=== PATIENT | male | born 1985 | race Caucasian/White ===

== ENCOUNTER 2017-01-30 17:04 | Emergency (ER) | payer MEDICARE, MEDICAID ==
[2017-01-30] MEDS ORDERED: KETOROLAC TROMETHAMINE 60 MG/2 ML VIAL IM ONE (18:05)
[2017-01-30] MEDS ORDERED: ORPHENADRINE CITRATE 30 MG/ML VIAL ONE (18:06)
[2017-01-30] MEDS ORDERED: oxyCODONE HCL/ACETAMINOPHEN 1 TAB TABLET ONE (18:29)
--- OUTSIDE RECORDS SUMMARY | 2017-01-30 22:25 | XMS REPORT | Continuity of Care Document ---
:1985 Author Organization [facility] ([facility]) Address [address] [place] [address] Phone [phone] Care Team Providers Name Role Phone [phone], Need To Check Primary Care Provider Unavailable Source Comments This disclosure is being made pursuant to the Care Everywhere program, applicable federal and state laws, and may not contain all informaitonavailable regarding this patient.[facility] ([facility]) Active Allergies and Adverse Reactions No Active Allergies Current Medications Prescription Sig. Disp. Refills Start Date End Date Status PARoxetine (PAXIL) 30 Take 30 mg by mouth Active mg tablet daily. cloNIDine 0.1 mg Take 1.5 Tabs by mouth 90 Tab 11 07/26/2012 Active tablet 2 times daily. Indications: ATTENTION-DEFICIT HYPERACTIVITY DISORDER ALPRAZolam (XANAX) 1 Take 1 Tab by mouth 2 60 Tab 5 07/26/2012 Active mg tablet times daily. Indications: ANXIETY Active Problems Problem Noted Date Abnormal involuntary movements(781.0) 07/26/2012 Tourette's syndrome 07/26/2012 Social History Tobacco Use Types Packs/Day Years Used Date Current Every Day Smoker 1 18 Tobacco Cessation:Ready to Quit: No; Counseling Given: Yes Comments: Last Filed Vital Signs Vital Sign Reading Time Taken Blood Pressure 137/74 07/26/2012 9:09 AM CDT Pulse 76 07/26/2012 9:09 AM CDT Temperature 36.5 C (97.7 F) 01/27/2004 2:44 PM [employer] Respiratory Rate 16 01/27/2004 2:44 PM [employer] Height 1.778 m (5' 10") 07/26/2012 9:09 AM CDT Weight 98.6 kg (217 lb 6 oz) 07/26/2012 9:09 AM CDT Body Mass Index 31.19 07/26/2012 9:09 AM CDT Oxygen Saturation - - Plan of Care Health Maintenance Due Date Last Done Comments Hepatitis B Vaccine (1 of 3 - Primary Series) 1985 Tdap Vaccine 1997 Lipid Disorder Screening 2004 MMR Vaccine 2004 Td Vaccine 2004 Varicella Vaccine (1 of 2 - Adult - No Evidence of 2004 Immunity) Pneumococcal Vaccine (1 of 1 - PPSV23) 2005 Influenza Vaccine: Seasonal (#1) 06/05/2016 Results from Last 3 Months Not on file
[2017-01-30 23:56] VITALS: BP 134/78
== END 2017-01-30 18:40 | disposition home or self-care (01) ==
LOC: ER 17:04
DX: M54.89 Other dorsalgia (principal)

== ENCOUNTER 2017-06-25 13:02 | Emergency (ER) | payer MEDICARE, MEDICAID ==
[2017-06-25 13:11] VITALS: BP 129/87
--- NOTE | 2017-06-25 14:16 | ERNOTE ---
Medical Problem HPI - Narrative Date of Service: 06/25/17 - General Chief Complaint: General Assessment Time Seen by Provider: 06/25/17 13:20 Source: patient Exam Limitations: no limitations - Immun/Allergies/Home Medications Immunizations: IMMUNIZATION HX Immunizations Up to Date Yes History of Influenza Vaccine No Hx Pneumococcal Vaccination No Allergies/Adverse Reactions: Allergies shellfish derived Allergy (Severe, Verified 06/25/17 13:12) Anaphylaxis tramadol Allergy (Mild, Verified 06/25/17 13:12) Vomiting iodine Allergy (Unknown, Verified 06/25/17 13:12) hydrocodone Allergy (Verified 06/25/17 13:12) Itching Home Medications: HOME MEDICATIONS ALPRAZolam [Xanax] 0.5 mg PO TID 09/28/14 [Last Taken 11/10/14] cloNIDine [Catapres-Tts 1] 0.1 mg TD BID 08/21/15 [Last Taken Unknown] Ibuprofen [Motrin] 600 mg PO Q6H PRN #40 tab 10/13/16 [Last Taken Unknown] oxyCODONE HCL/ACETAMINOPHEN [Oxycodone-Acetaminophen 5-325] 1 each PO Q6H PRN # 20 tablet 10/13/16 [Last Taken Unknown] Permethrin [Elimite 5% Cream] 1 appl TP Q7D #60 gm 06/25/17 [Last Taken Unknown] Prednisone 50 mg PO DAILY #5 tablet 06/25/17 [Last Taken Unknown] - History of Present History Narrative: Patient presents to the ED for itching. He relates he has been having severe itching for the last 5 days. He states he is itching all over. benadryl did not help. no exposures noted. No trouble breathing or swallowing. Has not seen anyone else for this. Tried OTC scabies treatment but no help. Noticed red bumps including on the webspaces. Nothing makes this better or worse. No other systemic Sx. No oral Sx or SOB. Timing: constant Modifying Factors - (Improves): Present: other - nothing Modifying Factors - (Worsens): Present: other - nothing Review of Systems - Review of Systems Constitutional: Absent: fever ENT: Present: no symptoms reported Respiratory: Absent: shortness of breath Cardiology: Absent: chest pain Gastrointestinal/Abdominal: Present: no symptoms reported Musculoskeletal: Present: no symptoms reported Skin: Present: See HPI Neurological: Absent: weakness - Patient's Past Medical History Patient History - Medical: Anxiety, Chronic Pain, Other Patient History - Cardiac/Respiratory: No pertinent hx Patient History - Cancer: No Hx of Cancer Patient History - Surgical Procedures: T & A, Other Patient History - Other: None - Social History Living Situations: home Psych History: Psychiatric Hx Does anyone smoke in the home?: Yes Smoking Status: Current every day smoker Alcohol Use: occasionally Drug Use: none - Immunizations Immunizations Up to Date: Yes Hx Pneumococcal Vaccination: No History of Influenza Vaccine: No Physical Exam - Physical Exam General Appearance: Present: alert, no apparent distress, other - itching Head Exam: Present: normal inspection, no evidence of injury Eye Exam: Normal inspection: bilateral, PERRL: bilateral Ears, Nose, Throat: Present: normal ENT inspection, other - no oral lesions Neck: Present: normal inspection Respiratory: Present: no respiratory distress, no accessory muscle use, lungs clear Cardiovascular/Chest: Present: regular rate, rhythm, normal peripheral pulses Gastrointestinal/Abdominal: Present: normal bowel sounds, nontender, soft Back Exam: Present: normal range of motion Extremity Exam: Present: no edema Neurological Exam: Present: alert, normal mood/affect, no motor/sensory deficits Skin Exam: Present: normal color, warm/dry, other - scattered small red papules including int eh webspaces of the hands. This does not appear allergic, it does not appear to be infected. Clinically this may be scabies so will treat for this. No TEN, SJS or EM. Does not appear to be a life threatening rash. ED Progress - Vital Signs Patient's Vital Signs:: I have reviewed the patient's vital signs. Vital Signs: Vital Signs 06/25/17 13:09 Temperature 36.6 C Pulse Rate 80 Respiratory 16 Rate Blood Pressure 129/87 O2 Sat by Pulse 97 Oximetry - Progress/Reassessment Chief Complaint: General Assessment Progress Note-Subjective: 06/25/17 14:15 Will treat for scabies. No airway or oral involvement. No acute life threat noted. I disucssed warning signs and reasons to return as well as the need for close f/u. Departure - Departure Clinical Impression: Rash and nonspecific skin eruption Disposition: Home self-care Condition: Stable Additional Instructions: Benadryl. Medications as directed. Follow-up with your doctor within 5 days for a re-check. Return here for fever, trouble breathing or swallowing, increased rash or if your condition worsens or changes in any way. Prescriptions: Permethrin [Elimite 5% Cream] 1 appl TP Q7D #60 gm Prednisone 50 mg PO DAILY #5 tablet
== END 2017-06-25 14:04 | disposition home or self-care (01) ==
LOC: ER 13:02
DX: R21 Rash and other nonspecific skin eruption (principal); G89.29 Other chronic pain; F41.9 Anxiety disorder, unspecified; F17.200 Nicotine dependence, unspecified, uncomplicated

== ENCOUNTER 2017-07-18 10:04 | Emergency (ER) | payer MEDICARE, MEDICAID ==
[2017-07-18] MEDS ORDERED: ALPRAZolam 0.25 MG TABLET PO ONE (10:34)
--- NOTE | 2017-07-18 10:34 | ERNOTE ---
Medical Problem HPI - General Chief Complaint: General Assessment Time Seen by Provider: 07/18/17 10:10 Source: patient Exam Limitations: no limitations - Immun/Allergies/Home Medications Immunizations: IMMUNIZATION HX Immunizations Up to Date Yes History of Influenza Vaccine No Hx Pneumococcal Vaccination No Allergies/Adverse Reactions: Allergies shellfish derived Allergy (Severe, Verified 07/18/17 10:47) Anaphylaxis tramadol Allergy (Mild, Verified 07/18/17 10:47) Vomiting iodine Allergy (Unknown, Verified 07/18/17 10:47) hydrocodone Allergy (Verified 07/18/17 10:47) Itching Home Medications: HOME MEDICATIONS ALPRAZolam [Xanax] 0.5 mg PO TID 09/28/14 [Last Taken 11/10/14] cloNIDine [Catapres-Tts 1] 0.1 mg TD BID 08/21/15 [Last Taken Unknown] Ibuprofen [Motrin] 600 mg PO Q6H PRN #40 tab 10/13/16 [Last Taken Unknown] oxyCODONE HCL/ACETAMINOPHEN [Oxycodone-Acetaminophen 5-325] 1 each PO Q6H PRN # 20 tablet 10/13/16 [Last Taken Unknown] Permethrin [Elimite 5% Cream] 1 appl TP Q7D #60 gm 06/25/17 [Last Taken Unknown] Prednisone 50 mg PO DAILY #5 tablet 06/25/17 [Last Taken Unknown] - History of Present History Narrative: Here for having taken an "energy pill" for weight loss this am and following that he felt sharp right sided chest wall pains. No shortness of breath. Pt has a history of anxiety for which he takes Xanax 1mg QID and he has not taken his Xanax since last night because "I couldn't find them". This not being able to find his Xanax AND his energy pill made patient VERY anxious and subsequently his right sided chest pains became worse so he presented to ED. No fevers or chills Review of Systems - Review of Systems Constitutional: Present: See HPI EYE: Absent: eye pain, eye discharge, tearing ENT: Absent: ear pain Respiratory: Absent: shortness of breath, cough, orthopnea Cardiology: Present: See HPI, chest pain Genitourinary: Absent: frequency, pain, dysuria, hematuria Neurological: Present: tremors Psych: Present: anxiety - Patient's Past Medical History Patient History - Medical: Anxiety, Chronic Pain, Other Patient History - Cardiac/Respiratory: No pertinent hx Patient History - Cancer: No Hx of Cancer Patient History - Surgical Procedures: T & A, Other Patient History - Other: None - Social History Living Situations: spouse Psych History: Psychiatric Hx Does anyone smoke in the home?: Yes Smoking Status: Current every day smoker Have you smoked in the past 12 months: Yes Do you dip or chew tobacco: No Patient requests Smoking Cessation Consult: No Alcohol Use: occasionally Drug Use: none - Immunizations Immunizations Up to Date: Yes Hx Pneumococcal Vaccination: No History of Influenza Vaccine: No Physical Exam - Physical Exam General Appearance: Present: alert - patient appears very nervous and anxious in the exam room he has general tremors. When I speak to the patient has tremors subsided slightly. At the time of the examination patient denies any chest pains in the right chest area. Head Exam: Present: normal inspection, no evidence of injury Ears, Nose, Throat: Present: normal ENT inspection, normal pharynx Neck: Present: normal inspection, nontender Respiratory: Present: no respiratory distress, normal breath sounds, no accessory muscle use, chest nontender, lungs clear Cardiovascular/Chest: Present: regular rate, rhythm, no murmur, normal peripheral pulses Extremity Exam: Present: normal inspection, normal range of motion Neurological Exam: Present: alert, oriented, normal mood/affect, other - patient appears extremely anxious and tremulous ED Progress - Vital Signs Patient's Vital Signs:: I have reviewed the patient's vital signs. Vital Signs: Vital Signs 07/18/17 10:11 Temperature 36.4 C L Pulse Rate 86 Respiratory 18 Rate Blood Pressure 150/102 O2 Sat by Pulse 100 Oximetry - EKG EKG read: Interp. by me - normal sinus - X-Ray X-Ray #1 X-Ray: chest - Progress/Reassessment Chief Complaint: General Assessment Plan - Plan Plan: This patient is having an acute anxiety attack. When I speak to the patient calmly and have him focus on his symptoms and what he took today his tremulousness disappears. At one time patient looks at me and states "my chest pain is gone". This patient's anxiety will be treated with Xanax 1 mg by mouth he is to follow-up with his neurologist. Departure - Departure Clinical Impression: Anxiety Disposition: Home self-care Condition: Good Instructions: Panic Attacks, [id number] Additional Instructions: Please follow-up with either your primary care doctor or your neurologist for controlled substances such as Xanax.
[2017-07-18] MEDS ORDERED: ALPRAZolam 0.25 MG TABLET ONE (10:39)
[2017-07-18] MEDS ORDERED: IBUPROFEN 400 MG TABLET PO ONE (11:06)
[2017-07-18] MEDS ORDERED: IBUPROFEN 400 MG TABLET ONE (11:08)
[2017-07-18 11:18] VITALS: BP 130/82
== END 2017-07-18 11:22 | disposition home or self-care (01) ==
LOC: ER 10:04
DX: F41.9 Anxiety disorder, unspecified (principal); F17.200 Nicotine dependence, unspecified, uncomplicated